=== PATIENT | female | born 1985 | race African-American/Black ===

== ENCOUNTER 2017-02-24 22:32 | Emergency (ER) | payer OTHER ==
[~2017-02-24] VITALS: Ht 162.6 cm; Wt 74.8 kg
[2017-02-24 22:44] VITALS: BP 142/64
[2017-02-24] MEDS ORDERED: TRAM-48 PO (23:07)
--- NOTE | 2017-02-24 23:08 | PHYS DOC ---
Past Medical History Past Medical History: No Pertinent History Past Surgical History: Other Additional Past Surgical Histo: GI sx ? Alcohol Use: None Drug Use: None Adult General Chief Complaint Chief Complaint: DENTAL PROBLEM HPI HPI Patient is a 31 year old female who presents with dental pain moderate to mild in nature on the right lower gum that has been going on for 2 weeks. She initially stated she has no dentist. I told her i will discharged with antibiotics and anti-inflammatories. She then stated she was already seen by her dentist and just finished antibiotics. She states she took some ibuprofen as well as Ultram from her mother with no relief. She is requesting something for pain that is stronger than ultram. Patient denies any fever or trismus. Review of Systems Review of Systems Constitutional: Denies fever or chills [] HENT: Right lower tooth dental pain Musculoskeletal: Denies back pain or joint pain [] Integument: Denies rash or skin lesions [] Neurologic: Denies headache, focal weakness or sensory changes [] All other systems were reviewed and found to be within normal limits, except as documented in this note. Allergies Allergies Allergies Coded Allergies Type Severity Reaction Last Updated Verified nalbuphine Allergy Unknown 01/02/15 Yes Physical Exam Physical Exam Constitutional: Well developed, well nourished, no acute distress, non-toxic appearance. [] HENT: Normocephalic, atraumatic, bilateral external ears normal, oropharynx moist, no oral exudates, nose normal. [] Tooth #31 appears broken and has dental carriers. Skin: Warm, dry, no erythema, no rash. [] Back: No tenderness, no CVA tenderness. [] Extremities: No tenderness, no cyanosis, no clubbing, ROM intact, no edema. [] Neurologic: Alert and oriented X 3, normal motor function, normal sensory function, no focal deficits noted. [] Psychologic: Affect normal, judgement normal, mood normal. [] Current Patient Data Vital Signs Vital Signs Date Time Temp Pulse Resp B/P (MAP) Pulse Ox O2 Delivery O2 Flow Rate FiO2 02/24/17 22:44 98.0 94 18 100 Room Air 98.0 EKG EKG [] Radiology/Procedures Radiology/Procedures [] Course & Med Decision Making Course & Med Decision Making Pertinent Labs and Imaging studies reviewed. (See chart for details) Please see HPI. Patient has dental pain. She'll be discharged with instructions to continue following up with her own dentist. She'll be given Ultram for pain. She states she has already finished antibiotics. Informed her I will not give her anything stronger than Ultram for her pain. Instructed her to take Tylenol if Ultram is not working. She asked if she can return to the [facility] to be ge given something stronger for pain.Informed her she can return any time to be evaluated but we have an narcotic epidemic and will not be giving people narcotics unnecessarily. Dragon Disclaimer Dragon Disclaimer This electronic medical record was generated, in whole or in part, using a voice recognition dictation system. Departure Departure Impression: Primary Impression: Dentalgia Additional Impression: Dental caries Disposition: HOME, SELF-CARE Condition: STABLE Referrals: NO PCP (PCP) Follow-up with your dentist in 1-2 weeks Patient Instructions: Dental Caries, Dental Pain Additional Instructions: You were seen for ongoing dental pain. You need to follow-up with your own dentist on Monday. Scripts Tramadol Hcl (ULTRAM) 50 Mg Tablet 1 TAB PO Q6HRS, #10 TAB Prov: SHERMAN PRESLEY APRN 02/24/17 Problem Qualifiers SHERMAN PRESLEY APRN Feb 24, 2017 23:08
== END 2017-02-24 23:13 | disposition home or self-care (01) ==
LOC: ER 22:32
DX: K02.9 Dental caries, unspecified (principal); Z88.8 Allergy status to other drugs, medicaments and biological substances
CPT/HCPCS: 99283